=== PATIENT | female | born 1980 | race Caucasian/White ===

== ENCOUNTER 2020-06-18 17:32 | Emergency (ER) | payer SELFPAY ==
--- NOTE | 2020-06-18 18:45 | EDPHYS ---
Physician Documentation [facility] Name: Kathleen Thurman Age: 40 yrs Sex: Female : 1980 Arrival Date: 06/18/2020 Time: 17:34 Bed 15 Private MD: ED Physician Gómez Rubi HPI: 06/18 18:41 This 40 yrs old Female presents to ER via Ambulatory with complaints of jr8 Laceration - Finger. 18:41 Onset: The symptoms/episode began/occurred acutely, today. Modifying factors: The jr8 symptoms are alleviated by nothing, the symptoms are aggravated by nothing. Associated signs and symptoms: The patient has no apparent associated signs or symptoms. Severity of symptoms: At their worst the symptoms were mild, in the emergency department the symptoms are unchanged. The patient has not experienced similar symptoms in the past. The patient has not recently seen a physician. Stated that she was cooking and accidently cut her finger . 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 - Social history:: Smoking status: Patient denies any tobacco usage or history of. ROS: 18:41 Eyes: Negative for injury, pain, redness, and discharge, ENT: Negative for injury, jr8 pain, and discharge, Neck: Negative for injury, pain, and swelling, Cardiovascular: Negative for chest pain, palpitations, and edema, Respiratory: Negative for shortness of breath, cough, wheezing, and pleuritic chest pain, Abdomen/GI: Negative for abdominal pain, nausea, vomiting, diarrhea, and constipation, Back: Negative for injury and pain, MS/Extremity: Negative for injury and deformity, Neuro: Negative for headache, weakness, numbness, tingling, and seizure. 18:41 Skin: Positive for laceration(s), of the right middle finger. Exam: 18:41 Constitutional: This is a well developed, well nourished patient who is awake, alert, jr8 and in no acute distress. Cardiovascular: Regular rate and rhythm with a normal S1 and S2. No gallops, murmurs, or rubs. Normal PMI, no JVD. No pulse deficits. Respiratory: Lungs have equal breath sounds bilaterally, clear to auscultation and percussion. No rales, rhonchi or wheezes noted. No increased work of breathing, no retractions or nasal flaring. MS/ Extremity: Pulses equal, no cyanosis. Neurovascular intact. Full, normal range of motion. Neuro: Awake and alert, GCS 15, oriented to person, place, time, and situation. Motor strength 5/5 in all extremities. Sensory grossly intact. 18:41 Skin: injury, laceration(s), the wound is approximately 4 cm(s), with a depth of .3 cm(s), of the right middle finger dorsal aspect, that can be described as no foreign body, linear, with mild bleeding. Vital Signs: 17:55 BP 139 / 101; Pulse 82; Resp 17 S; Temp 98.3(TE); Pulse Ox 99% on R/A; Weight 61.23 kg; jl7 Height 5 ft. 3 in. (160.02 cm); Pain 1/10; 18:30 BP 154 / 96; Pulse 90; Resp 16; Pulse Ox 99% on R/A; vg1 17:55 Body Mass Index 23.91 (61.23 kg, 160.02 cm) jl7 Laceration: 18:41 Wound Repair of 4cm ( 1.6in ) subcutaneous laceration to right middle finger. Linear jr8 shaped.. Minimal bleeding noted.. Distal neuro/vascular/tendon intact. Anesthesia: Local anesthetic administered with 2 mls of 1% lidocaine. Wound prep: Extensive cleansing with hibiclenz, Wound explored extensively. Skin closed with 4 4-0 Prolene using simple sutures and sterile technique. Patient tolerated well. MDM: 18:20 Patient medically screened. jr8 18:41 Data reviewed: vital signs, nurses notes, and as a result, I will discharge patient. jr8 Data interpreted: Pulse oximetry: on room air is 99 %. Interpretation: normal. Counseling: I had a detailed discussion with the patient and/or guardian regarding: the historical points, exam findings, and any diagnostic results supporting the discharge/admit diagnosis, the need for outpatient follow up, a family practitioner, to return to the emergency department if symptoms worsen or persist or if there are any questions or concerns that arise at home. ED course: Patient up to date on Tetanus . Administered Medications: No medications were administered Disposition: 06/18/20 18:45 Discharged to Home. Impression: Laceration without foreign body of right middle finger without damage to nail. - Condition is Stable. - Discharge Instructions: Laceration Care, Adult. - Medication Reconciliation Form, Thank You Letter, Antibiotic Education, Prescription Opioid Use form. - Follow up: Private Physician; When: 7 - 10 days; Reason: Wound Recheck, Recheck today's complaints, Continuance of care, Staple/Suture removal, Re-evaluation by your physician. - Problem is new. - Symptoms have improved. Addendum: 06/20/2020 07:45 Co-signature as Attending Physician, Gómez Rubi MD I agree with the assessment and c duvall plan of care. Signatures: Gómez Rubi MD MD cha Roszak, Josh, PA PA jr8 Booker Reina RN RN jl7 Frannie Kaiser RN RN vg1 Corrections: (The following items were deleted from the chart) 06/18 18:55 18:45 06/18/2020 18:45 Discharged to Home. Impression: Laceration without foreign body vg1 of right middle finger without damage to nail. Condition is Stable. Forms are Medication Reconciliation Form, Thank You Letter, Antibiotic Education, Prescription Opioid Use. Follow up: Private Physician; When: 7 - 10 days; Reason: Wound Recheck, Recheck today's complaints, Continuance of care, Staple/Suture removal, Re-evaluation by your physician. Problem is new. Symptoms have improved. jr8
--- NOTE | 2020-06-18 18:45 | ER ---
Nurse's Notes [facility] Name: Kathleen Thurman Age: 40 yrs Sex: Female : 1980 Arrival Date: 06/18/2020 Time: 17:34 Bed 15 Private MD: Diagnosis: Laceration without foreign body of right middle finger without damage to nail Presentation: 06/18 17:55 Chief complaint: Patient states: Right middle finger cut with food order expediter blade jl7 about an hour ago. Coronavirus screen: Client denies travel out of the [place] in the last 14 days. At this time, the client does not indicate any symptoms associated with coronavirus-19. Ebola Screen: No symptoms or risks identified at this time. Complicating Factors: There are no complicating factors for this patient. Initial Sepsis Screen: Does the patient meet any 2 criteria? No. Patient's initial sepsis screen is negative. Does the patient have a suspected source of infection? No. Patient's initial sepsis screen is negative. Risk Assessment: Do you want to hurt yourself or someone else? Patient reports no desire to harm self or others. Onset of symptoms was June 18, 2020 at 17:00. Care prior to arrival: None. 17:55 Method Of Arrival: Ambulatory 7 17:55 Acuity: LANCE 4 jl7 Triage Assessment: 17:59 General: Appears in no apparent distress. uncomfortable, Behavior is calm, cooperative, jl7 appropriate for age. Pain: Complains of pain in right middle finger Pain currently is 1 out of 10 on a pain scale. Injury Description: Laceration sustained to right middle finger is clean, 0.5 to 2.5 cm long, was sustained 30-60 minutes ago. is bleeding no active bleeding noted. 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 - Social history:: Smoking status: Patient denies any tobacco usage or history of. Screenin:31 Abuse screen: Denies threats or abuse. Nutritional screening: No deficits noted. vg1 Tuberculosis screening: No symptoms or risk factors identified. Fall Risk No fall in past 12 months (0 pts). No secondary diagnosis (0 pts). No IV (0 pts). Ambulatory Aid- None/Bed Rest/Nurse Assist (0 pts). Gait- Normal/Bed Rest/Wheelchair (0 pts) Mental Status- Oriented to own ability (0 pts). Total Carvalho Fall Scale indicates No Risk (0-24 pts). Assessment: 18:23 General: Appears in no apparent distress. comfortable, Behavior is calm, cooperative. vg1 Pain: Complains of pain in right middle finger Pain currently is 2 out of 10 on a pain scale. Pain began 2 hours ago. Neuro: Level of Consciousness is awake, alert, obeys commands, Oriented to person, place, time, situation. Cardiovascular: Capillary refill < 3 seconds in bilateral fingers. Respiratory: Airway is patent Respiratory effort is even, unlabored. GI: No signs and/or symptoms were reported involving the gastrointestinal system. : No signs and/or symptoms were reported regarding the genitourinary system. EENT: No signs and/or symptoms were reported regarding the EENT system. Derm: Skin is intact, Skin is pink, warm \T\ dry. Musculoskeletal: Circulation, motion, and sensation intact. Injury Description: Laceration sustained to right middle finger is clean, bleeding moderately. Vital Signs: 17:55 BP 139 / 101; Pulse 82; Resp 17 S; Temp 98.3(TE); Pulse Ox 99% on R/A; Weight 61.23 kg; jl7 Height 5 ft. 3 in. (160.02 cm); Pain 1/10; 18:30 BP 154 / 96; Pulse 90; Resp 16; Pulse Ox 99% on R/A; vg1 17:55 Body Mass Index 23.91 (61.23 kg, 160.02 cm) jl7 ED Course: 17:34 Patient arrived in ED. ds1 17:56 Triage completed. jl7 17:59 Arm band placed on right wrist. jl7 18:20 Efren Meyer PA is PHCP. jr8 18:20 Gómez Rubi MD is Attending Physician. jr8 18:27 Frannie Kaiser, RN is Primary Nurse. vg1 18:31 Patient has correct armband on for positive identification. Bed in low position. Call vg1 light in reach. Side rails up X 1. 18:54 No provider procedures requiring assistance completed. Patient did not have IV access vg1 during this emergency room visit. Administered Medications: No medications were administered Outcome: 18:45 Discharge ordered by . jr8 18:54 Discharged to home ambulatory. vg1 18:54 Condition: stable 18:54 Discharge instructions given to patient, Instructed on discharge instructions, follow up and referral plans. Demonstrated understanding of instructions, follow-up care, wound care. 18:55 Patient left the ED. vg1 Signatures: Leta Petersen ds1 Efren Meyer PA PA jr8 Booker Reina, RN RN jl7 Frannie Kaiser, RN RN vg1
[2020-06-18] MEDS ORDERED: LIDOCAINE 1% MPF 5 ML VIAL ONE (18:46)
[2020-06-18 20:00] VITALS: TEMP 98.3; O2SAT 99
[2020-06-18 20:02] VITALS: BP 154/96
== END 2020-06-18 18:55 | disposition home or self-care (01) ==
LOC: ER 17:32
PROC: 0JQJ0ZZ Repair Right Hand Subcutaneous Tissue and Fascia, Open Approach (ICD-10-PCS; principal; 2020-06-18)
DX: S61.212A Laceration without foreign body of right middle finger without damage to nail, initial encounter (principal); Y28.9XXA Contact with unspecified sharp object, undetermined intent, initial encounter; Y93.G3 Activity, cooking and baking; I10 Essential (primary) hypertension; E03.9 Hypothyroidism, unspecified
CPT/HCPCS: 99281